=== PATIENT | female | born 1990 | race American Indian/Alaskan Native ===

== ENCOUNTER 2017-05-13 13:15 | Inpatient (IN) | payer BC ==
--- NOTE | 2017-05-13 14:09 | HP ---
Past Medical History - Admission History of Present Illness: 26 yo @ 39 1/7 wks by first trimester ultrasound, EDC 05/19/2017 complicated by: 1. GDMA1 - diet controlled LABS Early GCT 11/07/16 - 148(H) Early GTT 12/13/16 - 67/177/135/100 GTT 02/14/17 - 81/217(H)/202(H)/128 ULTRASOUND 03/18/17 - EFW AGA (1595g, 26%) 04/23/17 - EFW AGA (2541g, 23%); Amniotic fliud volume low normal. 05/08/17 - EFW AGA (2915g, 21%); Amniotic fliud volume low normal. BLOOD SUGAR DIARY 03/03/17 - Few breakfast, and isolated lunch elevations noted, probably dietary related (ie. pancakes ?) 03/18/17 - Few lunch, and isolated breakfast & dinner elevations noted. 04/02/17 - Few lunch & dinner elevations noted. 04/23/17 - Few global post prandial elevations noted. 05/08/17 - Few global post prandial elevations noted. 2. Hx/o scoliosis, s/p surgery 2006 (patient reports surgery done above L2) Patient presents with chief complaint of contractions that began at 0400, which increased in intensity and frequency. She presented to the office, was found to be 6 cm and was sent for admission. She reports no acute complaints. She endorses movement, denies leakage of fluid or vaginal bleeding. History Source: Patient Limitations to Obtaining History: No Limitations - Past Medical History Cardiovascular: No: HTN Pulmonary: No: Asthma Gastrointestinal: No: GERD ...: 1 ...Para: 0 ...EDC by Sono: 05/19/17 Heme/Onc: No: Anemia Endocrine: Yes: Other (GDMA1 as above) - Past Surgical History Past Surgical History: Yes: None Hx Myomectomy: No Hx Transabdominal Cerclage: No - Smoking History Smoking history: Never smoked - Alcohol/Substance Use Hx Alcohol Use: No History of Substance Use: reports: None - Social History History of Recent Travel: No Home Medications - Allergies Allergies/Adverse Reactions: Allergies Allergy/AdvReac Type Severity Reaction Status Date / Time Penicillins Allergy Verified 07/14/16 22:14 - Home Medications Home Medications: Ambulatory Orders Folic Acid 1 mg PO DAILY 05/08/16 Vit/Iron Fumarate/FA [ Tablet] 1 tab PO DAILY 05/13/17 Family Disease History - Family Disease History Family History: Denies Review of Systems - Review of Systems Constitutional: reports: No Symptoms Cardiovascular: reports: No Symptoms Respiratory: reports: No Symptoms Gastrointestinal: reports: No Symptoms Musculoskeletal: reports: No Symptoms Hematology/Lymphatic: reports: No Symptoms Psychiatric: reports: No Symptoms Physical Exam - Maternity Constitutional: Yes: Well Nourished, No Distress, Calm Cardiovascular: Yes: Regular Rate and Rhythm Lungs: Clear to auscultation - Abdominal Exam/OB Number of Fetuses: Single Presentation: Vertex Contractions: Yes Regularity: Regular Heart Rate (range): 130 Category: I Accelerations: Non-Uniform Decelerations: None - Vaginal Exam/OB Vaginal Bleediing: No - Physical Exam Psychiatric: Yes: Alert, Oriented - Labs Lab Results: PNL: B positive, antibody negative, RPR NR, HBS Ag negative, Rubella Immune, GBS negative, HIV negative Hemorrhage Risk Assessment - Risk Factors Medium Risk Factors: Yes: None High Risk Factors: Yes: None Risk Score: 1 Risk Level: Medium Risk Assessment/Plan 26 yo @ 39 wks, active labor 1. Admit to labor and delivery Consents reviewed and signed 2. Admission labs collected and sent 3. GBS negative 4. Category I FHT 5. Will continue expectant management, anticipate vaginal delivery
[2017-05-13 14:11] LABS: BASOPHIL 0.3 % (0-2.0); EOSINOPHIL 0.6 % (0-4.5); MCH 30.2 pg (25.7-33.7); MCHC 33.6 g/dl (32.0-36.0); MEAN CELL VOLUME 89.6 fl (80-96); MEAN PLT VOLUME 10.8 fl (7.5-11.1); NEUTROPHILS 83.5 % (42.8-82.8); PLATELET COUNT 154 K/MM3 (134-434); RDW 14.8 % (11.6-15.6); WHITE BLOOD COUNT 13.5 K/mm3 (4.0-10.0)
[2017-05-13 14:28] VITALS: BMI 29.7
[2017-05-13 14:28] LABS: INR 1.03 (0.82-1.09); PROTHROMBIN TIME (PATIENT) 11.3 SEC (9.98-11.88)
[2017-05-13 14:31] LABS: ACTIVATED PTT 28.4 SECONDS (26.9-34.4)
[2017-05-13 14:40] LABS: ANION GAP 9 (8-16); CALCIUM 8.9 mg/dL (8.5-10.1); CO2 23 mmol/L (21-32); CREATININE 0.5 mg/dL (0.55-1.02); GLUCOSE,RANDOM 102 mg/dL (74-106)
[2017-05-13] MEDS ORDERED: FENTANYL/BUPIVACAINE/NS/PF - PCEA - 50 ML DISP.SYRIN EP SCH (15:30)
[2017-05-13] MEDS ORDERED: ELECTROLYTE-148 SOLN 500 ML IV ONE (15:34)
--- NOTE | 2017-05-13 15:44 | PN ---
Ante-Partal Exam - Subjective Subjective: Patient comfortable s/p epidural Vital Signs: Vital Signs Temperature 97.9 F 05/13/17 13:15 Pulse Rate 95 H 05/13/17 15:25 Respiratory Rate 18 05/13/17 15:25 Blood Pressure 132/86 05/13/17 15:25 O2 Sat by Pulse Oximetry (%) 99 05/13/17 15:25 Bleeding: No Headache: No Visual changes: No Right upper quadrant pain: No - Contractions Contractions: Yes Regularity: Regular Intensity: Mod/Strong Monitor Mode: External - Exam during Labor Heart Rate: 130 Variability: Moderate Category: I Monitor Accelerations: Present Monitor Decelerations: None Exam: Vaginal Dilatation (cm): 8 Effacement (%): 90 Amniotic Membrane Status: Ruptured Amniotic Fluid: Clear Presentation: Vertex Station: -1 - Intrapartum Hemorrhage Risk Medium Risk Factors: None High Risk Factors: None Risk Score: 0 Risk Level: Low Risk - Assessment/Plan Assessment/Plan: 26 yo in active labor 1. Good cervical change 2. GBS negative 3. Pain well controlled with epidural 4. Category I FHT 5. Will continue expectant management, anticipate vaginal delivery
[2017-05-13] MEDS ORDERED: ELECTROLYTE-148 SOLN 1,000 ML IV SCH (16:03)
[2017-05-13] MEDS: OXYTOCIN 20 UNITS in 0.9% NS 1,000 ML IV SCH (19:10)
[2017-05-13] MEDS ORDERED: BENZOCAINE 20% 57 GM BOTTLE TP PRN (19:17)
[2017-05-13] MEDS ORDERED: METHYLERGONOVINE MALEATE 0.2 MG/1 ML AMP IM PRN (19:17)
[2017-05-13] MEDS ORDERED: BISACODYL 10 MG SUPP.RECT RC PRN (19:17)
[2017-05-13] MEDS ORDERED: oxyCODONE HCL 5 MG TABLET PO PRN (19:17)
[2017-05-13] MEDS ORDERED: WITCH HAZEL 50% (TUCKS) 40 PAD/JAR PAD TP PRN (19:17)
[2017-05-13] MEDS ORDERED: BENZOCAINE 28 GM HEMORRHOIDAL OINTMENT TP PRN (19:17)
--- NOTE | 2017-05-13 19:25 | PN ---
Delivery - Delivery Vaginal Delivery: No Problems Type of Anesthesia: Epidural Episiotomy/Laceration: Midline, 2nd degree EBL (cc): 500 Delivery, Single - Stages of Labor Date 1st Stage Initiatied: 05/13/17 Time 1st Stage Initiated: 04:00 Date 2nd Stage Initiated: 05/13/17 Time 2nd Stage Initiated: 18:00 Date of Delivery: 05/13/17 Time of Delivery: 18:56 Date Placenta Delivered: 05/13/17 Time Placenta Delivered: 19:10 Placenta: Yes: Spontaneous - 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 Infant Gender: Female Position: Left, OA Total Hours ROM (Hrs/Mins): 5hr 16 minutes - 1 Minute Total Score: 9 5 Minutes Total Score: 9 - Feeding Plan Initial Plan: Exclusive throughout hospitalization Remarks - Remarks Remarks: Patient progressed to fully dilated and at 1856 via delivered a viable female infant in LAUREANO position, APGARs 9,9. Weight and length unknown at this time. Head delivered spontaneously followed by shoulders and body without difficulty. Compound L hand noted posteriorly. with spontaneous cry and placed on mother's abdomen. Nose and mouth was bulb suctioned. Cord was clamped and cut. Perineum and vagina examined, a second degree laceration was noted and repaired in the usual fashion. Rectal exam revealed no sutures in rectum. Placenta was delivered spontaneously and intact. 20 units of pitocin in 1 L IVF was given. All counts correct x 2. Mother and infant stable in LDR. EBL 500cc.
[2017-05-14] MEDS: IBUPROFEN 600 MG TABLET (FP) PO PRN (02:42)
[2017-05-14] MEDS: ACETAMINOPHEN 325 MG TABLET (FP) PO PRN (02:44)
[2017-05-14 07:35] LABS: BASOPHIL 0.2 % (0-2.0); EOSINOPHIL 1.3 % (0-4.5); MCH 30.3 pg (25.7-33.7); MCHC 33.8 g/dl (32.0-36.0); MEAN CELL VOLUME 89.6 fl (80-96); MEAN PLT VOLUME 10.7 fl (7.5-11.1); NEUTROPHILS 76.6 % (42.8-82.8); PLATELET COUNT 133 K/MM3 (134-434); RDW 14.8 % (11.6-15.6); WHITE BLOOD COUNT 16.3 K/mm3 (4.0-10.0)
[2017-05-14] MEDS: PRENATAL VITAMINS W/ FOLIC ACID TABLET (FP) PO SCH (09:24)
--- NOTE | 2017-05-14 09:59 | PN ---
Post Progress Note - Subjective Subjective: Patient without acute complaints. Reports tolerating oral intake without nausea or vomiting. Ambulating without dizziness. Denies fevers or chills. Pain well controlled with oral pain medication. without difficulty. Passing flatus. Post Day: 1 Type of Delivery: Vital Signs: Vital Signs Temperature 97.9 F 05/14/17 05:56 Pulse Rate 70 05/14/17 05:56 Respiratory Rate 18 05/14/17 05:56 Blood Pressure 111/67 05/14/17 05:56 O2 Sat by Pulse Oximetry (%) 100 05/13/17 18:10 Breast Exam: Yes: Engorged Uterus: Yes: Fundus Firm, Non-tender. No: Fundus below umbilicus Abdomen/GI: Yes: Abdomen soft, Passing flatus, Tolerating PO. No: Tender Lochia: Yes: Serosa Lochia, amount: Small Extremities: Yes: Calves non-tender. No: Edema Perineum: Yes: Laceration Activity: Ambulating - Labs Labs: CBC WBC 16.3 K/mm3 (4.0-10.0) H 05/14/17 06:00 RBC 3.68 M/mm3 (3.60-5.2) 05/14/17 06:00 Hgb 11.1 GM/dL (10.7-15.3) D 05/14/17 06:00 Hct 33.0 % (32.4-45.2) D 05/14/17 06:00 MCV 89.6 fl (80-96) 05/14/17 06:00 MCH 30.3 pg (25.7-33.7) 05/14/17 06:00 MCHC 33.8 g/dl (32.0-36.0) 05/14/17 06:00 RDW 14.8 % (11.6-15.6) 05/14/17 06:00 Plt Count 133 K/MM3 (134-434) L 05/14/17 06:00 MPV 10.7 fl (7.5-11.1) 05/14/17 06:00 Neutrophils % 76.6 % (42.8-82.8) 05/14/17 06:00 Lymphocytes % 15.2 % (8-40) D 05/14/17 06:00 Monocytes % 6.7 % (3.8-10.2) 05/14/17 06:00 Eosinophils % 1.3 % (0-4.5) D 05/14/17 06:00 Basophils % 0.2 % (0-2.0) 05/14/17 06:00 Assessment/Plan 26 yo PPD # 2 s/p , afebrile, vital signs stable, doing well 1. Continue routine care 2. CBC stable 3. Rh positive status, no rhogam indicated 4. Encourage ambulation 5. Continue oral pain medication 6. Anticipate discharge home day #2
[2017-05-14] MEDS ORDERED: SENNOSIDES/DOCUSATE COMBO (SENNA PLUS) TABLET (UD) PO PRN (22:00)
[2017-05-14] MEDS: OXYTOCIN 20 UNITS in 0.9% NS 1,000 ML IV SCH (22:01)
[2017-05-15 07:46] VITALS: BP 108/70; PULSE 74; TEMP 97.4
--- NOTE | 2017-05-15 07:48 | DS ---
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 Vital Signs: Vital Signs Temperature 97.4 F L 05/15/17 07:45 Pulse Rate 74 05/15/17 07:45 Respiratory Rate 18 05/15/17 07:45 Blood Pressure 108/70 05/15/17 07:45 O2 Sat by Pulse Oximetry (%) 100 05/13/17 18:10 Constitutional: Yes: Well Nourished, No Distress, Calm Eyes: Yes: WNL, Conjunctiva Clear, EOM Intact HENT: Yes: WNL, Atraumatic, Normocephalic Neck: Yes: WNL, Supple, Trachea Midline Cardiovascular: Yes: WNL, Regular Rate and Rhythm Respiratory: Yes: WNL, Regular, CTA Bilaterally Gastrointestinal: Yes: WNL ...Rectal Exam: Yes: WNL Renal/: Yes: WNL ....Post : Yes: Uterus firm, Uterus non-tender, Slight lochia rubra Breast(s): Yes: WNL Musculoskeletal: Yes: WNL Extremities: Yes: WNL Edema: No Integumentary: Yes: WNL Neurological: Yes: WNL, Alert, Oriented ...Motor Strength: WNL Psychiatric: Yes: WNL, Alert, Oriented Labs: CBC, BMP 05/14/17 06:00 05/13/17 14:05 Delivery - Delivery Vaginal Delivery: No Problems, Spontaneous Type of Anesthesia: Epidural Episiotomy/Laceration: Midline, 2nd degree EBL (cc): 500 Delivery, Single - Stages of Labor Date 1st Stage Initiatied: 05/13/17 Time 1st Stage Initiated: 04:00 Date 2nd Stage Initiated: 05/13/17 Time 2nd Stage Initiated: 18:00 Date of Delivery: 05/13/17 Time of Delivery: 18:56 Time Placenta Delivered: 19:10 Placenta: Yes: Spontaneous - 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/[employer] 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 Present: No Gender: Female Weight: 6 lb 7 oz Position: Left, OA Total Hours ROM (Hrs/Mins): 5hr 16 minutes - 1 Minute Total Score: 9 5 Minutes Total Score: 9 - Feeding Plan Initial Plan: Exclusive throughout hospitalization Discharge Summary Reason For Visit: LABOR Procedures: Principal: Condition: Good - Instructions Diet, Activity, Other Instructions: regular diet, follow up office 4 weeks Referrals: Aditya Carrera MD [Staff Physician] - Disposition: HOME - Home Medications Comprehensive Discharge Medication List: Ambulatory Orders Folic Acid 1 mg PO DAILY 05/08/16 Vit/Iron Fumarate/FA [ Tablet] 1 tab PO DAILY 05/13/17 Ibuprofen [Motrin -] 600 mg PO QID #28 tablet 05/14/17
[2017-05-15] MEDS: PRENATAL VITAMINS W/ FOLIC ACID TABLET (FP) PO SCH (09:49)
[2017-05-15] MEDS: ACETAMINOPHEN 325 MG TABLET (FP) PO PRN (09:49)
[2017-05-15] MEDS: IBUPROFEN 600 MG TABLET (FP) PO PRN (09:50)
== END 2017-05-15 12:10 | disposition home or self-care (01) | DRG 775 ==
LOC: JLDR 13:15 → J3W 20:18
PROVIDERS: ADMIT Obstetrics & Gynecology; ATTEND Obstetrics & Gynecology
PROC: 0KQM0ZZ Repair Perineum Muscle, Open Approach (ICD-10-PCS; principal; 2017-05-13)
DX: O24.420 Gestational diabetes mellitus in childbirth, diet controlled (principal); O70.1 Second degree perineal laceration during delivery; Z37.0 Single live birth; Z3A.39 39 weeks gestation of pregnancy
CPT/HCPCS: 36415; 59409; 80048; 85025; 85610; 85730; 86593; 86850; 86900; 86901

== ENCOUNTER 2019-02-19 01:55 | Inpatient (IN) | payer BC ==
[2019-02-19] MEDS ORDERED: METHYLERGONOVINE MALEATE 0.2 MG/1 ML AMP IM PRN (02:43)
[2019-02-19] MEDS ORDERED: BENZOCAINE 20% 57 GM BOTTLE TP PRN (02:43)
[2019-02-19] MEDS ORDERED: BENZOCAINE 28 GM HEMORRHOIDAL OINTMENT TP PRN (02:43)
[2019-02-19] MEDS ORDERED: WITCH HAZEL 50% (TUCKS) 40 PAD/JAR PAD TP PRN (02:43)
[2019-02-19] MEDS ORDERED: BISACODYL 10 MG SUPP.RECT RC PRN (02:43)
[2019-02-19] MEDS ORDERED: TUBERCULIN PPD 5 TU/0.1ML SYRINGE (IN PATIENT USE ONLY) ID ONE ×2 (02:44→10:00)
[2019-02-19] MEDS ORDERED: OXYTOCIN 20 UNITS in 0.9% NS 20 UNIT/1,000 ML INFUS.BAG IV SCH (02:45)
--- NOTE | 2019-02-19 02:46 | HP ---
Past Medical History - Primary Care Physician PCP:: Sav Cooper - Admission Chief Complaint: 28yo P1 with at EGA 38w4d admitted with spont labor in second stage. History of Present Illness: Presented in second stage of spont labor. GDM A1 Vaginal GBS (+) History Source: Patient Limitations to Obtaining History: No Limitations - Past Medical History Endocrine: Yes: Other (GDMA1 as above) - Past Surgical History Past Surgical History: Yes: None - Smoking History Smoking history: Never smoked Have you smoked in the past 12 months: No - Alcohol/Substance Use Hx Alcohol Use: No History of Substance Use: reports: None - Social History History of Recent Travel: No Home Medications - Allergies Allergies/Adverse Reactions: Allergies Allergy/AdvReac Type Severity Reaction Status Date / Time Penicillins Allergy Verified 05/08/16 22:14 fruits Allergy Intermediate Itching Uncoded 05/13/17 17:42 nuts Allergy Intermediate Itching Uncoded 05/13/17 17:42 - Home Medications Home Medications: Ambulatory Orders Folic Acid 1 mg PO DAILY 05/08/16 Vit/Iron Fum/Folic AC [ Tablet] 1 tab PO DAILY 05/13/17 Ibuprofen [Motrin -] 600 mg PO QID #28 tablet 05/14/17
[2019-02-19 04:29] LABS: BASO % 0.1 % (0-2.0); EOS % 0.2 % (0-4.5); HEMATOCRIT 37.5 % (32.4-45.2); HEMOGLOBIN 12.8 GM/dL (10.7-15.3); LYMPH % 9.5 % (8-40); MCH 30.2 pg (25.7-33.7); MEAN CELL VOLUME 88.7 fl (80-96); MONO % 5.7 % (3.8-10.2); NEUT % 84.5 % (42.8-82.8); PLATELET COUNT 167 K/MM3 (134-434); RBC 4.23 M/mm3 (3.60-5.2); RDW 15.5 % (11.6-15.6); WHITE BLOOD COUNT 15.6 K/mm3 (4.0-10.0)
[2019-02-19 04:49] LABS: ANION GAP 10 MMOL/L (8-16); BLOOD UREA NITROGEN 7 mg/dL (7-18); CALCIUM 8.2 mg/dL (8.5-10.1); CHLORIDE 105 mmol/L (98-107); CO2 22 mmol/L (21-32); CREATININE 0.5 mg/dL (0.55-1.3); GLUCOSE,RANDOM 124 mg/dL (74-106); POTASSIUM 3.8 mmol/L (3.5-5.1); SODIUM 137 mmol/L (136-145)
[2019-02-19 04:51] LABS: INR 0.92 (0.83-1.09); PROTHROMBIN TIME (PATIENT) 10.9 SEC (9.7-13.0)
[2019-02-19 04:54] LABS: ACTIVATED PTT 27.9 SECONDS (25.2-36.5)
[2019-02-19 05:03] VITALS: BMI 32.4
[2019-02-19] MEDS ORDERED: OXYTOCIN 10 UNITS/ML VIAL IM ONE (05:26)
[2019-02-19] MEDS: IBUPROFEN 600 MG TABLET (FP) PO PRN ×4 (08:26→21:36)
[2019-02-19] MEDS: ACETAMINOPHEN 325 MG TABLET (FP) PO PRN ×4 (08:26→21:37)
[2019-02-19] MEDS: PRENATAL VITAMINS W/ FOLIC ACID TABLET (FP) PO SCH (09:35)
--- NOTE | 2019-02-19 10:53 | PN ---
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
[2019-02-20 04:07] LABS: HBsAG SCREEN Negative (Negative)
[2019-02-20] MEDS: IBUPROFEN 600 MG TABLET (FP) PO PRN ×4 (05:08→21:51)
[2019-02-20] MEDS: ACETAMINOPHEN 325 MG TABLET (FP) PO PRN ×4 (05:09→21:50)
[2019-02-20 08:36] LABS: BASO % 0.2 % (0-2.0); EOS % 1.9 % (0-4.5); LYMPH % 23.9 % (8-40); MCHC 33.4 g/dl (32.0-36.0); MEAN CELL VOLUME 89.9 fl (80-96); MEAN PLT VOLUME 10.2 fl (7.5-11.1); MONO % 7.4 % (3.8-10.2); NEUT % 66.6 % (42.8-82.8); PLATELET COUNT 160 K/MM3 (134-434); RDW 15.4 % (11.6-15.6); WHITE BLOOD COUNT 11.7 K/mm3 (4.0-10.0)
[2019-02-20] MEDS: PRENATAL VITAMINS W/ FOLIC ACID TABLET (FP) PO SCH (09:48)
--- NOTE | 2019-02-20 10:28 | PN ---
Progress Note (short form) - Note Progress Note: ppd 1 , doing well, no excess vaginal bleeding CBC, BMP 02/20/19 07:57 02/19/19 03:45 Last Vital Signs Temp Pulse Resp BP Pulse Ox 98 F 69 20 104/66 02/20/19 09:02 02/20/19 09:02 02/20/19 09:02 02/20/19 09:02 abdomen soft, no distension, no cva uterus firm, non tender lochia mild no calf tenderness plan ambulate , d/c home in am
[2019-02-20] MEDS ORDERED: SENNOSIDES/DOCUSATE COMBO (SENNA PLUS) TABLET (UD) PO PRN (22:00)
--- NOTE | 2019-02-21 06:37 | DS ---
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 Vital Signs: Vital Signs Temperature 98.9 F 02/20/19 22:00 Pulse Rate 76 02/20/19 22:00 Respiratory Rate 18 02/20/19 22:00 Blood Pressure 112/59 L 02/20/19 22:00 O2 Sat by Pulse Oximetry (%) Constitutional: Yes: Well Nourished, No Distress, Calm Eyes: Yes: WNL, Conjunctiva Clear, EOM Intact HENT: Yes: WNL, Atraumatic, Normocephalic Neck: Yes: WNL, Supple, Trachea Midline Cardiovascular: Yes: WNL, Regular Rate and Rhythm Respiratory: Yes: WNL, Regular, CTA Bilaterally Gastrointestinal: Yes: WNL ...Rectal Exam: Yes: WNL Renal/: Yes: WNL ....Post : Yes: Uterus firm, Uterus non-tender, Slight lochia rubra Breast(s): Yes: WNL Musculoskeletal: Yes: WNL Extremities: Yes: WNL Edema: No Integumentary: Yes: WNL Neurological: Yes: WNL, Alert, Oriented ...Motor Strength: WNL Psychiatric: Yes: WNL, Alert, Oriented Labs: CBC, BMP 02/20/19 07:57 02/19/19 03:45 Delivery - Delivery Vaginal Delivery: No Problems, Spontaneous Type of Anesthesia: Local Episiotomy/Laceration: Perineal Extension/lac, 2nd degree EBL (cc): 400 Delivery, Single - Stages of Labor Date 1st Stage Initiatied: 02/17/19 Time 1st Stage Initiated: 22:00 Date 2nd Stage Initiated: 02/19/19 Time 2nd Stage Initiated: 02:05 Date of Delivery: 02/19/19 Time of Delivery: 02:08 Time Placenta Delivered: 02:10 Placenta: Yes: Spontaneous, Normal Configuration - Condition of Cushion Sewer/Open Soaper Tender Present: No Infant Gender: Male Weight: 6 lb 12 oz Position: Left, OA Total Hours ROM (Hrs/Mins): 07 MIN - 1 Minute Total Score: 9 10 Minutes Total Score: 9 - Feeding Plan Initial Plan: Elected not to breastfeed exclusively throughout hospitalization Discharge Summary Reason For Visit: ADMIT LABOR Procedures: Principal: Hospital Course: no complication Condition: Good - Instructions Diet, Activity, Other Instructions: regular diet, follow up office 4 weeks, if fever, heavy vaginal bleeding call md Referrals: Aditya Carrera MD [Staff Physician] - Disposition: HOME - Home Medications Comprehensive Discharge Medication List: Ambulatory Orders Folic Acid 1 mg PO DAILY 05/08/16 Vit/Iron Fum/Folic AC [ Tablet] 1 tab PO DAILY 05/13/17 Ibuprofen [Motrin -] 600 mg PO QID #28 tablet 05/14/17 Ibuprofen [Motrin -] 600 mg PO QID #28 tablet 02/20/19
[2019-02-21] MEDS: IBUPROFEN 600 MG TABLET (FP) PO PRN (07:35)
[2019-02-21] MEDS: ACETAMINOPHEN 325 MG TABLET (FP) PO PRN (07:35)
[2019-02-21 07:59] VITALS: BP 116/67; PULSE 68; TEMP 98.7
[2019-02-21] MEDS: PRENATAL VITAMINS W/ FOLIC ACID TABLET (FP) PO SCH (09:14)
== END 2019-02-21 11:20 | disposition home or self-care (01) | DRG 807 ==
LOC: JLDR 01:55 → J3W 05:37
PROVIDERS: ADMIT Obstetrics & Gynecology; ATTEND Obstetrics & Gynecology
PROC: 10E0XZZ Delivery of Products of Conception, External Approach (ICD-10-PCS; principal; 2019-02-19)
PROC: 0KQM0ZZ Repair Perineum Muscle, Open Approach (ICD-10-PCS; 2019-02-19)
DX: O24.429 Gestational diabetes mellitus in childbirth, unspecified control (principal); Z37.0 Single live birth; O70.1 Second degree perineal laceration during delivery; O99.824 Streptococcus B carrier state complicating childbirth; Z3A.38 38 weeks gestation of pregnancy
CPT/HCPCS: 36415; 59409; 80048; 85025; 85610; 85730; 86593; 86762; 86850; 86900; 86901; 87340